=== PATIENT | male | born 1970 ===

== ENCOUNTER 2019-11-30 21:56 | Observation (INO) | payer OTHER ==
[~2019-11-30] VITALS: Ht 193 cm; Wt 95.4 kg
--- NOTE | 2019-11-30 21:56 | NUR ---
PATIENT TO ROOM VIA EMS STRETCHER IN [facility], ACCOMPANIED BY DEPUTY. TRIAGE COMPLETED AT BEDSIDE. AWAITING MD LEVY.
[2019-11-30] MEDS ORDERED: CARVEDILOL6.25 MG PO (22:14)
[2019-11-30] MEDS ORDERED: ZESTRIL10 M1 PO (22:15)
[2019-11-30] MEDS ORDERED: ZYPREXA10 M1 IM (22:15)
[2019-11-30] MEDS ORDERED: ASPIRIN 8181 MG PO (22:15)
[2019-11-30 22:28] LABS: HEMATOCRIT 37.9 % (39.0-50.0); HEMOGLOBIN 12.3 g/dl (14.0-18.0); IMMATURE GRANULOCYTES 0.3 % (0.0-5.0); MEAN CELL VOLUME 86.3 fL CALC (80.0-100.0); MEAN CORPUSCULAR HGB CONC 32.5 g/dL CAL (32.0-36.0); NEUT# 1.25 thou/uL (1.82-7.42); RED BLOOD COUNT 4.39 mill/uL (4.70-6.10); RED CELL DISTRI WIDTH 15.2 % (11.5-15.5)
--- NOTE | 2019-11-30 22:36 | NUR ---
500CC CLEAR YELLOW URINE EMPTIED FROM URINAL, PATIENT ASWAKE AND ALERT, NO C/O PAIN OR DISCOMFORT, NO S/S OF DISTRESS NOTED, RESPIRATIONS EVEN AND UNLABORED KORY AT BEDSIDE.
[2019-11-30 22:49] LABS: D-DIMER 0.33 mg/L (0.19-0.60)
[2019-11-30 22:50] LABS: ALBUMIN 4.2 g/dL (3.2-5.0); ALKALINE PHOSPHATASE 76 u/l (38-126); AMYLASE 66 u/l (30-110); ANION GAP 11 (6-22 (CALC)); BILIRUBIN, TOTAL 0.4 mg/dL (0.0-1.4); BUN 11 mg/dL (9-20); BUN/CREATININE RATIO 15 (12-20 (CALC)); CARBON DIOXIDE 27 mmol/l (22-30); CHLORIDE 106 mmol/l (95-108); CREATININE 0.7 mg/dL (0.7-1.3); GFR > 60 ML/MIN (>=60 (CALC)); GFR FOR AFR.AMER. > 60 ML/MIN (>=60 (CALC)); LIPASE 99 u/l (23-300); SGOT/AST 35 u/l (17-59); SODIUM 139 mmol/l (137-146); TOTAL PROTEIN 7.1 g/dL (6.3-8.2)
[2019-11-30 22:52] LABS: ACT PARTIAL THROMBO TIME 24.1 SECONDS (20.0-32.5); INTERNATIONAL NORMALIZED RATIO 1.2 RATIO (0.7-1.3); PROTHROMBIN TIME 11.5 SECONDS (9.0-12.5)
[2019-11-30 23:01] LABS: MYOGLOBIN 37 ng/mL (0 - 121)
--- NOTE | 2019-11-30 23:23 | NUR ---
PATIENT ADVISED BY PHYSICIAN OF ADMISSION, PATIENT AGREEABLE.
--- NOTE | 2019-11-30 23:47 | NUR ---
PATIENT MEDICATED FOR PAIN PER PATIENT REQUEST BY PHYSICIAN ORDER, PHYSICIAN AWARE OF PATIENT VITALS AT TIME OF MEDICATION ADMINISTRATION.
--- NOTE | 2019-11-30 23:55 | NUR ---
HAND OFF REPORT GIVEN TO PAMELA
[2019-12-01 00:05] VITALS: BP 116/66
--- NOTE | 2019-12-01 00:05 | NUR ---
RECEIVED FROM ER VIA STRETCHER. AMBULATED FROM STRETCHER TO BED WITH STABLE STANCE AND STEADY GAIT. PLACED ON KEYBOARDING TEACHER SHOWING SB. RESP NON-LABORED. BREATH SOUNDS CLEAR THROUGHOUT. SALINE LOCK IN RAC, SITE BENIGN. ORIENTED TO SURROUNDINGS. DISCUSSED PLAN OF CARE. CALL RANGEL IN REACH.
--- NOTE | 2019-12-01 00:30 | NUR ---
PARISA REQUESTING SOMETHING TO EAT. GIVEN HEALTHY CHOICE DINNER AND SODA.
--- NOTE | 2019-12-01 03:30 | NUR ---
POSTBED STITCHER HERE FOR LAB DRAW.
[2019-12-01 03:35] LABS: URINE BILIRUBIN - DIPSTICK NEGATIVE (NEGATIVE); URINE BLOOD DIPSTICK NEGATIVE (NEGATIVE); URINE CLARITY CLEAR; URINE COLOR YELLOW; URINE GLUCOSE - DIPSTICK NEGATIVE (NEGATIVE); URINE KETONE NEGATIVE (NEGATIVE); URINE LEUK ESTERASE NEGATIVE (Negative); URINE NITRITE - DIPSTICK NEGATIVE (Negative); URINE PROTEIN - DIPSTICK NEGATIVE (NEG-TRACE)
[2019-12-01 04:00] VITALS: BP 103/59
--- NOTE | 2019-12-01 04:00 | NUR ---
RESTING WITHOUT COMPLAINTS. VSS. SB ON MONITOR.
--- NOTE | 2019-12-01 05:40 | NUR ---
MEDICATED WITH SCHEDULED DOSE OF TORADOL FOR C/O INTERMITTENT LEFT SIDED CHEST PAIN. PATIENT DESCRIBES THE PAIN SHARP, "IT COMES AND GOES." EATING SNACK OF SERGE CRACKERS AND APPLE JUICE.
[2019-12-01 06:00] VITALS: BP 100/56
--- NOTE | 2019-12-01 06:00 | NUR ---
RESTING WITH EYES CLOSED. RESP NON-LABORED. LUNGS CLEAR. CONTINUES SB ON MONITOR.
--- NOTE | 2019-12-01 06:30 | NUR ---
PATIENT IS [facility] INMATE, OFFICER HAS BEEN IN CONSTANT ATTENDANCE AT BEDSIDE. PATIENT HAS SHACKLE TO LEFT ANKLE.
--- NOTE | 2019-12-01 07:50 | NUR ---
PT RESTING IN BED, NO SIGNS OF DISTRESS NOTED, RESP EVEN AND UNLABORED. BREAKFAST TRAY BROUGHT IN, PT SITTING UP IN BED, DISCUSSED POC, PT STATES HE HAS PAIN 6/10 AND THAT THE "SHOT" HE GOT IN "ER HELPED THE PAIN". ASKED PT IF IT WAS TORADOL, PT STATES "NOT TORADOL THE OTHER ONE". NITRO PASTE IN PLACE, GUARD AT BEDSIDE, ASSESSMENT COMPLETED, CALL LIGHT IN REACH,CONTINUE TO MONITOR.
[2019-12-01 08:30] VITALS: BP 82/45
--- NOTE | 2019-12-01 09:10 | NUR ---
MD AT BEDSIDE DISCUSSING LAB RESULTS AND PLANS FOR DISCHARGE, PT AGREES. RECHECKED BP AFTER NITRO PASTE REMOVED. VSS. CALL LIGHT IN REACH,CONTINUE TO MONITOR.
[2019-12-01 09:16] VITALS: BP 107/54
[2019-12-01] MEDS ORDERED: AMOXICILLIN/CL875 MG PO (10:50)
--- NOTE | 2019-12-01 11:51 | NUR ---
discharge instructions reviewed with pt; discharge material released to founder and chief executive officer to give to medical staff at [facility]
--- NOTE | 2019-12-01 12:25 | NUR ---
Discharge instructions given. Patient verbalizes understanding of same. Discharged in stable condition via Wheelchair to [facility] with Officer. All belongings sent with pt.
--- NOTE | 2019-12-01 12:32 | NUR ---
REPORT GIVEN TO NURSE AT [facility].
== END 2019-12-01 12:25 | DRG 313 ==
LOC: EDPENDDISTM → EDPENDDISDT → ED 21:56 → ED-I 23:10 → ED 23:25 → ICU 23:43
PROVIDERS: Family Medicine; ADMIT Internal Medicine; ATTEND Internal Medicine
DX: R07.9 Chest pain, unspecified (principal); I42.7 Cardiomyopathy due to drug and external agent; I25.10 Atherosclerotic heart disease of native coronary artery without angina pectoris; F19.11 Other psychoactive substance abuse, in remission; R91.8 Other nonspecific abnormal finding of lung field; Z20.828 Contact with and (suspected) exposure to other viral communicable diseases
CPT/HCPCS: J1650